=== PATIENT | male | born 1995 | race Caucasian/White ===

== ENCOUNTER 2019-12-07 00:07 | Emergency (ER) | payer BC, SELFPAY ==
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
[2019-12-07 02:25] VITALS: TEMP 99
[2019-12-07 02:27] VITALS: BP 130/75; O2SAT 99
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
== END 2019-12-07 02:18 | disposition home or self-care (01) ==
LOC: ER 00:07
DX: S82.142A Displaced bicondylar fracture of left tibia, initial encounter for closed fracture (principal); V27.4XXA Motorcycle driver injured in collision with fixed or stationary object in traffic accident, initial encounter; F17.210 Nicotine dependence, cigarettes, uncomplicated
CPT/HCPCS: 70450; 71260; 72125; 74177; 99284; Q9967

== ENCOUNTER 2024-02-06 11:17 | Emergency (ER) | payer BC, OTHER ==
--- OUTSIDE RECORDS SUMMARY | 2024-02-06 11:20 | XMS REPORT | Continuity of Care Document ---
Author Name Unknown Address [address] [facility] [address] [place] [address] [facility] thconnect Address [address] [facility] [address] [place] [address] Care Team Providers Care Top Taper Machine Name Role Phone PCP, PATIENT DOES NOT HAVE A Primary Care Physic asmita Unavailable SAL KIM Attending Clinician Unavaila SAL Arzola Attending Clinician Adriela henrietta Payers Payer Name Policy Type Policy Number Effective Date Expirati on Date Source [facility] [id number] 2023 00:00:00 Allergies, Adverse Reactions, Alerts Allergy Name Allergy Type Status Severity Reaction(s) Onset Date Inactive Date Treating Clinician Comments Source NO KNOWN ALLERGIE S Drug Class Active [facility] Encounters Start Date/Time End Date/Time Encounter Type Admission Type Attending Clinicians Care Facility Care Department Encounter ID Source 2024-04-17 20:00:00 2024-04-17 20:00:00 Outpatient SAL SAGASTUME STRAHIL [facility] [id number] [facility] 2024-01-25 16:30:00 2024-01-25 16:30:00 Outpatient R SAL KIM STRAHIL [facility] [id number] [facility]
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
[2024-02-06 12:23] LABS: Absolute Eosinophils 0.1 K/uL (0-0.5); Absolute Lymphocytes (CBC) 1.4 K/uL (0.7-4.9); Absolute Monocytes 0.4 K/uL (0.1-1.3); Absolute Neutrophil 4.3 K/uL (1.8-8.0); Albumin 4.3 g/dL (3.4-5.0); Albumin/Globulin Ratio 1.3 (1.1-1.8); Anion Gap 9.4 mEq/L (5.0-15.0); Basophils % 0.6 % (0-1.3); Bilirubin Total 1.1 mg/dL (0.2-1.0); Eosinophils % 2.3 % (0-4.4); Globulin 3.3 g/dL (2.3-3.5); Hematocrit 44.9 % (39.6-49.0); Hemoglobin 15.5 g/dL (13.6-17.9); Lymphocytes % 21.7 % (15.3-44.8); MCH 30.3 pg (27.0-35.0); MCHC 34.6 g/dL (32.0-36.0); MCV 87.7 fL (80-100); MPV 8.6 fL (7.6-11.3); Monocytes % 6.5 % (3.3-12.3); Neutrophils % 68.9 % (41.7-73.7); Platelets 224 thou/uL (152-406); Potassium 3.4 mEq/L (3.5-5.1); Protein, Total 7.6 g/dL (6.4-8.2); RBC Red Blood Cell Count 5.12 M/uL (4.33-5.43); Red Cell Distribution Width 12.2 % (12.1-15.2); Troponin High Sensitivity 3.6 pg/mL (<58.9)
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
[2024-02-06 13:53] VITALS: BP 167/97; TEMP 98; O2SAT 97
--- NOTE | 2024-02-07 15:09 | EKG ---
Test Date: 2024-02-06 Test Time: 11:48:09 Roll Bucker: DAVE MEASUREMENT RESULTS: Intervals: Rate: 84 NH: 140 QRSD: 98 QT: 372 QTc: 439 [place]ulus: P: -1 NH: 140 QRS: -17 T: 2 INTERPRETIVE STATEMENTS: Normal sinus rhythm Normal ECG No previous ECG available for comparison Electronically Signed On 02-07-24 15:06:18 CDT by Pérez Rivas
== END 2024-02-06 13:20 | disposition home or self-care (01) ==
LOC: ER 11:17
DX: S22.20XA Unspecified fracture of sternum, initial encounter for closed fracture (principal); V54.5XXA Driver of pick-up truck or van injured in collision with heavy transport vehicle or bus in traffic accident, initial encounter
CPT/HCPCS: 93005; 85025; 36415; 86900; 86850; 86901; 84484; 80053; 70450; 72125; 71260; 74177; 71045; 99284; Q9967